=== PATIENT | female | born 1975 | race Caucasian/White ===

== ENCOUNTER 2023-12-12 15:05 | Outpatient (RCR) | payer MEDICARE, SELFPAY ==
--- NOTE | 2023-12-27 09:02 | OPREHPOC ---
Outpatient Therapy Plan of Care This is a Multidisciplinary Plan of Care that may contain components documented by all disciplines (PT, OT, and ST.) PT Problem 1 PT Problem #1 Knowledge Deficit PT Goal 1 Goal 1. independent and compliant with HEP Target Visit 3 PT Problem 2 PT Problem #2 Pain PT Goal 1 Goal 1. decrease pain at worst to 3/10 or less in the R shoulder. Target Visit 6 PT Problem 3 PT Problem #3 Impaired Range of Motion PT Goal 1 Goal 1. improve active R shoulder flexion to 140 degrees or better 2. improve active R shoulder IR to 60 degrees or better 3. improve active R shoulder ER to 60 degrees or better Target Visit 6 PT Problem 4 PT Problem #4 Impaired Strength PT Goal 1 Goal 1. 4+/5 or greater R shoulder strength Target Visit 6 PT Problem 5 PT Problem #5 Impaired Functional Mobil PT Goal 1 Goal 1. quick dash to display less than 15% functional deficits 2. patient to return to prior level cleaning and home care activities without pain or limitation in mobility. Target Visit 6
--- NOTE | 2023-12-27 09:02 | PTOPEVAL1 ---
Assessment and note entered by JT File, PT Evaluation Information Assessment Status Evaluation Diagnosis R shoulder pain, adhesive capsulitis Onset 11/25/23 Subjective Information patient has seen ortho for R shoulder. she has pain in the R shoulder. she has had an xray, MRI, and nerve conduction test. she reports symptoms began last year when she was cleaning her house. she began getting pain in the R shoulder that felt like she tore something. she may have injured it as well after some exercising. she reports she reached for something under the bed. she began having a burning pain. she reports saw her family MD. she reports she then had an xray. it was negative. she then was referred for MRI. she reports meds have not helped. she got a 2nd opinion from Dr Quispe. she reports he felt maybe there was a tear. she had an injection then. she reports she is sore but mostly tolerable now. she is trying to avoid surgery. she has increased pain in the R shoulder with reaching overhead, such as when cleaning. she reports it feels like a resistance. she reports she has to adjust the angle and take her time. she reports she has not been able to exercise in the gym since the injury. she is walking on the treadmill for exercise. she has no scheduled appointment to follow up with ortho. Reported Pain Level Pain Score 3: Self Report Assessment PT Clinical Summary mrs. hope is a 48 yo woman who presents to skilled PT services for evaluation and treatment of R shoulder pain. she presents today with decreased rom, decreased strength, and pain in the R shoulder. her signs and symptoms indicated an adhesive capsulitis of the R shoulder. continued skilled PT is indicated to improve her shoulder rom, strength, and functional use to return to prior level functional activities and quality of life. Plan of Care Interventions Electrical Stimulation,Gait Training,Hot Pack/Cold Pack,Manual Therapy,Neuro Re-education,Patient/ Caregiver Educati,Therapeutic Activities, Therapeutic Exercise PT Services Indicated Yes Treatment Frequency and 3x weekly for 6 visits Duration These treatments will address the objective and functional deficits as defined above. The patient will be advanced safely and appropriately in order for the patient to p
--- NOTE | 2023-12-27 13:50 | OPREHPOC ---
Outpatient Therapy Plan of Care This is a Multidisciplinary Plan of Care that may contain components documented by all disciplines (PT, OT, and ST.) PT Problem 1 PT Problem #1 Knowledge Deficit PT Goal 1 Goal 1. independent and compliant with HEP Target Visit 3 Progress Met PT Problem 2 PT Problem #2 Pain PT Goal 1 Goal 1. decrease pain at worst to 3/10 or less in the R shoulder. Target Visit 6 Progress Met PT Problem 3 PT Problem #3 Impaired Range of Motion PT Goal 1 Goal 1. improve active R shoulder flexion to 140 degrees or better. met 2. improve active R shoulder IR to 60 degrees or better 3. improve active R shoulder ER to 60 degrees or better. met Target Visit 6 Progress Met PT Problem 4 PT Problem #4 Impaired Strength PT Goal 1 Goal 1. 4+/5 or greater R shoulder strength Target Visit 6 Progress Met PT Problem 5 PT Problem #5 Impaired Functional Mobil PT Goal 1 Goal 1. quick dash to display less than 15% functional deficits 2. patient to return to prior level cleaning and home care activities without pain or limitation in mobility. met Target Visit 6 Progress Partially Met
--- NOTE | 2023-12-27 13:51 | PTOPDC ---
Assessment and note entered by JT File, PT Evaluation Information Assessment Status Discharge Diagnosis R shoulder pain, adhesive capsulitis Onset 11/25/23 Subjective Information patient reports she is feeling good today. she reports she has little pain in the R shoulder, is able to clean house, and feels her mobility is improved. she is leaving to go out of town, and will be gone for an extended period of time [place]. Reported Pain Level Pain Score 2: Self Report Assessment PT Clinical Summary mrs. hope presents to skilled PT services today for her 6th skilled PT visit. as of this date, she has shown and improvement in rom, strength, and functional reaching of the R shoulder. she also reports less pain and rest and with activity. she has met goals for hep performance, pain, rom, and strength with partial progress made in quick dash score and IR rom. she is leaving to go out of the country for family. she will be DC'd from skilled PT services today, but continue with an updated HEP independently. Plan of Care PT Services Indicated Yes
== END 2023-12-27 14:24 | disposition home or self-care (01) ==
LOC: CHSPT 15:05
PROVIDERS: Visit Provider Orthopaedic Surgery
DX: M75.00 Adhesive capsulitis of unspecified shoulder (principal); M25.511 Pain in right shoulder
CPT/HCPCS: 97014; 97110; 97140; 97161; G0283

== ENCOUNTER 2024-05-04 08:58 | Outpatient (CLI) | payer MEDICARE, SELFPAY ==
--- NOTE | ~2024-05-04 | MR_ITS ---
MRI of the right shoulder Technique: Axial proton-density fat-sat images, coronal proton density fat-sat and T2 fat-sat images, and sagittal T1-weighted and T2 fat-sat images were acquired. Clinical History: Rotator cuff tear Findings: There is minimal degenerative change of the AC joint. Coracoclavicular, coracoacromial, and coracohumeral ligaments are intact. Supraspinatus and infraspinatus tendons are intact, without partial or full-thickness tear. Subscapul ashutosh tendon is intact. Tendon of long head of the biceps is intact. No labral tear seen. Inferior glenohumeral ligament is intact. No significant degenerative change or effusion of the gleno humeral joint. No fluid distention of the subacromial/subdeltoid bursa. No muscle atrophy or edema. Impression: No significant abnormality seen. Minimal AC joint degenerative change. Reviewed, dictated and finalized at [facility]. Impression: No significant abnormality seen. Minimal AC joint degenerative change.
== END 2024-05-04 08:59 | disposition home or self-care (01) ==
PROVIDERS: PCP Orthopaedic Surgery; Visit Provider Orthopaedic Surgery
DX: M75.101 Unspecified rotator cuff tear or rupture of right shoulder, not specified as traumatic (principal); M25.511 Pain in right shoulder
CPT/HCPCS: 73221

== ENCOUNTER 2024-06-24 02:08 | Day surgery (SDC) | payer MEDICARE, SELFPAY ==
[2024-06-16 10:42] VITALS: BMI 20.5
--- NOTE | 2024-06-16 11:17 | PC.NURSE ---
Report to the Outpatient Waiting Room, entrance under the green pavilion located off [facility], at time __11:30AM on date ___06/24/24____. Planned Procedure Time: ___1:30PM .? Time changes happen often and if your time is changed the preop area will call you the afternoon before. - You and your visitor will be asked to self-screen and do not enter if you have any COVID symptoms. Please call surgeon if you need to reschedule. - A mask is optional within the hospital at this time. Patients may have clear liquids (water, carbonated beverages, clear teas, apple juice) until 3 hours prior to surgery with a maximum of 20 ounces. - No food from midnight until time of surgery and no smoking. Take only the following medications with a SIP of water on the morning of surgery: NONE DO NOT STOP ANY OF YOUR OTHER PRESCRIPTION MEDICATIONS PRIOR TO SURGERY EXCEPT THE FOLLOWING Medications to discontinue per physician HOLD ALL VITAMINS/SUPPLEMENTS 3 DAYS PRE-OP PER ANESTHESIA Date to take last dose 06/20/24 Please no make-up, nail divehi, hairspray, perfume, deodorant, or body powder the day of surgery.? No jewelry (including any body piercings) or valuables the day of surgery, leave them at home.? Please take a shower or bath the night before, or the morning of, surgery with an antibacterial soap.? Wear comfortable, loose fitting clothing.? - Jewelry must be removed prior to entering the operating room.? Rings and piercings that are not removed may be cut off. - The hospital will not accept responsibility for valuables.? - Please leave all valuables, including medications, at home the day of surgery. If you are going home after surgery, a licensed cement mixer driver must drive you home.? - NO public transportation without another adult if you receive anesthesia. - We recommend that an adult stay with you for 24 hours following discharge. - We also recommend that you do not drive, make important decision, drink alcoholic beverages, or take any drugs that were not prescribed by your health care provider for at least 24 hours after your discharge time. Follow any additional instructions given to you from your surgeon. Telephone instructions given to ___PATIENT & HUSBAND and asked if any additional questions and then verbalized understanding. Patient advised to call surgeon office or pre surgery nurse liaison [phone] if any additional questions.
[2024-06-24] VITALS (9 sets, daily range): BP systolic 87–108; BP diastolic 53–71; PULSE 52–85; RESP 12–18; TEMP 36.6–36.7; O2SAT 100
--- NOTE | 2024-06-24 07:04 | WPDHPUPDATE1 ---
History and Physical Update Update Date/Time: 06/24/24 07:04 History and Physical has been reviewed, including an updated exam of the patient. There are NO changes in the patient's condition. Risks, benefits, and alternatives have been discussed and questions answered. Patient agrees to proceed with procedure.
[2024-06-24] MEDS: ACETAMINOPHEN 500 MG TABLET 1000 MG PO (12:10)
[2024-06-24] MEDS: CELECOXIB 200 MG CAPSULE PO (12:10)
[2024-06-24] MEDS: LACTATED RINGERS 1,000 ML 30 ML IV CONT (12:10)
[2024-06-24 13:05] LABS: Beta HCG Quantitative < 2.39 mIU/ML
--- NOTE | 2024-06-24 13:53 | WPDANESEPPF ---
Anes - Initial Pre Proc Eval Procedure: Operation Date: 06/24/24 13:30 Proposed Procedures p Right Shoulder Manipulation Under Anesthesia with Steroid Injection - Warner Quispe MD Date/Time: 06/24/24 13:53 Surgeon: Warner Quispe MD Pre Op Diagnosis: Rt shoulder adhesive Capsulitis Patient Data Age: 49 Gender: F Height: 1.6 m Weight: 57 kg Last Vital Signs Temp 97.8 F 06/24/24 13:22 Pulse 85 06/24/24 13:22 Resp 16 06/24/24 13:22 BP 108/60 06/24/24 13:22 Pulse Ox 100 06/24/24 13:22 O2 Del Method Room Air 06/24/24 13:22 Allergies Allergy/AdvReac Type Severity Reaction Status Date / Time No Known Allergies Allergy Unknown Verified 06/24/24 12:24 Home Medications Medication Instructions Recorded Confirmed Type uiptdric-sub-dirz 18 mg-FA 400 1 tablet PO DAILY 11/08/23 06/24/24 History mcg-calcium 500 mg-vit K 50 mcg tablet (Women's Multivitamin) Laboratory Tests 06/24/24 12:27 Beta HCG, Quant < 2.39 mIU/ML Patient hx anesthesia problems: none Family hx anesthesia problems: none Results Review: All pre-operative results and documents have been reviewed as part of the pre-operative evaluation. [facility] Surgical History Surgical History History of Family History Family History Father Malignant neoplasm of prostate Diabetes mellitus Hypertension Mother Hypertension Social History Social History Social History: caffeine use Smoking status: Never smoker Alcohol intake: current Drinks per week: 2 Substance use type: does not use Living arrangements: with family Additional living arrangements comments: HUSB AND CHILD Occupation/Education: occupation Additional occupation/education comments: [employer] Gender identity (if verbalized by the patient): Female Spiritual care concerns: No Anes - Eval Final PreProcedure Day of Procedure 06/24/24 13:53 Patient weight: normal Heart: regular rate and rhythm Lungs: clear to auscultation Airway: Mallampati scale class II Neurological: alert and oriented Last oral intake: >/= 8 hours ASA classification: I Emergent: no Anesthetic plan: proceed Anesthesia type and monitoring: general LMA and standard monitoring Results Review: All pre-operative results and documents have been reviewed as part of the pre-operative evaluation. Pt is healthy, active, no cp or sob. Preop done w [employer]. Informed Consent: The patient's anesthetic plan and its attendant risks and benefits were discussed with the patient/family/POA. Questions were solicited and answers provided to the satisfaction of the patient/family/POA.
--- NOTE | 2024-06-24 14:11 | P.HP_ITS ---
H&P: HPI History of Present Illness Date/Time: 06/24/24 14:11 Chief Complaint: New pt presents w/ bilateral shoulder pain that has been present for >1 year. NKI. R>L. Pt experiencing limited/painful ROM. She reports pain and popping w/ overhead and reaching activities. She reports occasional numbness in the hands/fingers. Weakness present. She received a cortisone injection into the subacromial space 11/25/23 and completed ~6wks of outpatient PT. She did expe rience some improvement, however, she denies resolution. MRI completed 05/04/24. Pt here to discuss results/poc. Review of Systems Review of Systems: All systems reviewed & are unremarkable except as noted in HPI and below PMFSH Surgical History Surgical History History of Family History Family History Father Malignant neoplasm of prostate Diabetes mellitus Hypertension Mother Hypertension Social History Social History Social History: caffeine use Smoking status: Never smoker Alcohol intake: current Drinks per week: 2 Substance use type: does not use Living arrangements: with family Additional living arrangements comments: HUSB AND CHILD Occupation/Education: occupation Additional occupation/education comments: [employer] Gender identity (if verbalized by the patient): Female Spiritual care concerns: No Meds Home Medications and Allergies Home Medications Medication Instructions Recorded Confirmed Type ywaiaeqf-ohx-khkj 18 mg-FA 400 1 tablet PO DAILY 11/08/23 06/24/24 History mcg-calcium 500 mg-vit K 50 mcg tablet (Women's Multivitamin) Allergies Allergy/AdvReac Type Severity Reaction Status Date / Time No Known Allergies Allergy Unknown Verified 06/24/24 12:24 Vital Signs Vital Signs - 24 hr 06/24/24 13:22 Temperature 36.6 C Pulse Rate 85 Respiratory Rate 16 Blood Pressure 108/60 Pulse Oximetry 100 Oxygen Delivery Room Air Exam Extrem: Right upper extremity: shoulder/upper arm normal to inspection, tenderness, swelling, axillary nerve sensory function normal, abnormal ROM pain with active ROM in ADduction, in ABduction, in extension, in flexion, in internal rotation and external rotation-, pain with passive ROM with ADduction, with ABduction, with extension, with flexion, with internal rotation and external rotation- and with range as follows (FF 75 ABD 75 ER 30 IR ILIAC CREST) and crepitus; no abrasions and no ecchymosis, elbow/forearm normal to inspection and normal ROM; no tenderness and no swelling, wrist normal to inspection and normal ROM; no tenderness and no swelling and Extremity exam: right hand normal to inspection, normal capillary refill, neuromotor exam normal, neurosensory exam normal, tendon exam normal, vascular exam radial pulse present, ulnar pulse present and normal capillary refill and normal ROM of fingers Assessment and Plan Assessment and plan (1) Frozen shoulder: Qualifiers: Laterality: right Qualified Code(s): M75.01 - Adhesive capsulitis of right shoulder Code(s): M75.00 - Adhesive capsulitis of unspecified shoulder Status: Acute Plan New pt presents w/ bilateral shoulder pain that has been present for >1 year. NKI. R>L. Pt experiencing limited/painful ROM. She reports pain and popping w/ overhead and reaching activities. She reports occasional numbness in the hands/fingers. Weakness present. She received a cortisone injection into the subacromial space 11/25/23 and completed ~6wks of outpatient PT. She did experience some improvement, however, she denies resolution. MRI completed 05/04/24. Pt here to discuss results/poc. Recommend right shoulder manipulation under anesthesia with injection as well. DISCUSSED NONOPERATIVE AND OPERATIVE TREATMENT OPTIONS WITH THE PATIENT. THE PATIENT'S QUESTIONS WERE ANSWERED. THE PATIENT DESIRES OPERATIVE TREATMENT. DISCUSSED __MUA AND INJECTION RIGHT SHOULDER . RISKS OF SURGERY INCLUDING BUT NOT LIMITED TO NEUROVASCULAR DAMAGE, WOUND COMPLICATIONS, BLOOD CLOT, PULMONARY EMBOLUS, STROKE, CO, ANESTHETIC RISKS UP TO AND INCLUDING WERE REVIEWED. CONTINUED PAIN AND POSSIBLE DYSFUNCTION WERE EXPLAINED. NO GUARANTEES WERE OFFERED. THE PATIENT UNDERSTANDS AND WISHES TO PROCEED.
[2024-06-24] MEDS: methylPREDNISolone ACETATE 80 MG/ML VIAL IM (14:23)
--- NOTE | 2024-06-24 14:44 | W.PM.PROC2 ---
Procedure Note - Detailed Date of Procedure 06/24/24 Pre-op Diagnosis Rt shoulder adhesive Capsulitis Post-op Diagnosis Same Procedure Performed JOE, INJECTION RIGHT SHOULDER Surgeon Warner Quispe MD Anesthesia General Description of Procedure THE PATIENT WAS TAKEN TO THE OPERATING ROOM AND PLACED UNDER GENERAL ANESTHESIA. ONCE SHE WAS CHEMICALLY PARALYZED THE RIGHT SHOULDER WAS MANIPULATED UNTIL FULL RANGE MOTION WAS ACHIEVED. NEXT THE RIGHT SHOULDER WAS PREPPED AND DRAPED STERILELY. DEPO MEDROL 80 MG X 1 CC AND MARCAINE 0.5% 9 CC WERE INJECTED IN TO THE RIGHT SHOULDER GLENOHUMERAL JOINT. THE PATIENT WAS SENT TO THE RECOVERY ROOM ONCE GENERAL ANESTHESIA WAS REVERSED, IN STABLE CONDITION. Estimated Blood Loss 0 Complications No immediate complications Disposition PACU
== END 2024-06-24 16:20 | disposition home or self-care (01) ==
PROVIDERS: Visit Provider Orthopaedic Surgery
PROC: (CPT 23700; principal; 2024-06-24 13:30)
DX: M75.01 Adhesive capsulitis of right shoulder (principal)
CPT/HCPCS: 23700; 36415; 84702; A9270; J0330; J1010; J1100; J2003; J2250; J2405; J2704; J3010; J7120

== ENCOUNTER 2024-06-25 09:59 | Outpatient (RCR) | payer MEDICARE, SELFPAY ==
--- NOTE | 2024-06-30 15:02 | OPREHPOC ---
Outpatient Therapy Plan of Care This is a Multidisciplinary Plan of Care that may contain components documented by all disciplines (PT, OT, and ST.) PT Problem 1 PT Problem #1 Knowledge Deficit PT Goal 1 Goal / Goal Update 1. independent and compliant with HEP Target Visit 5 PT Problem 2 PT Problem #2 Pain PT Goal 1 Goal / Goal Update 1. 2/10 pain at worst or less with active rom of the R shoulder Target Visit 10 PT Problem 3 PT Problem #3 Impaired Range of Motion PT Goal 1 Goal / Goal Update 1. 150 degrees passive R shoulder flex 2. 145 degrees or better active R shoulder flex 3. 90 degrees or better passive R shoulder ER 4. 70 degrees or better passive R shoulder IR Target Visit 10 PT Problem 4 PT Problem #4 Impaired Strength PT Goal 1 Goal / Goal Update 1. 4+/5 or better R shoulder strength Target Visit 10 PT Problem 5 PT Problem #5 Impaired Functional Mobil PT Goal 1 Goal / Goal Update 1. quick dash to display 0% functional deficits 2. patient to perform functional R UE reach behind head to the shirt collar 3. patient to perform functional R UE reach behind back to the bra line without compensated movement 4. patient to get dressed with ease 5. return to full body workouts to improve quality of life and overall health Target Visit 10
--- NOTE | 2024-06-30 15:02 | PTOPEVAL1 ---
Assessment and note entered by JT File, PT Evaluation Information Assessment Status Evaluation Diagnosis s/p R JOE ICD-10 Condition Codes (PT) M25.511 Other ICD-10 Condition Codes ( M75.01 PT) Onset 06/24/24 Subjective Information VRI Reta patient is deaf and uses a VRI spot washer for communication with PT. patient initially came down with adhesive capsulitis of the R shoulder several months ago. she did one round of therapy prior to going out of town to visit her family. when she returned she went under anesthesia for a manipulation of the R shoulder. she had this done on 06/24/24. her surgeon reports she had several adhesions broken up in ER of the R shoulder. he would like aggressive R shoulder PT including rom, strengthening, and stretching. she reports she is a bit sore today. patient repots difficulty with dressing due to pain/soreness and decreased mobility of the R shoulders. Reported Pain Level Pain Score 2: Self Report Assessment PT Clinical Summary mrs. hope is a 49 yo woman who presents to skilled PT services for evaluation and treatment s /p R shoulder JOE. she presents today with mm guarding, soreness, weakness, and decreased passive and active rom. she would benefit from aggressive continued skilled PT per MD orders to return to prior level rom and functional use of the R UE. Plan of Care Interventions Electrical Stimulation,Hot Pack/Cold Pack,Manual Therapy,Neuro Re-education,Patient/Caregiver Educati,Therapeutic Activities,Therapeutic Exercise PT Services Indicated Yes Treatment Frequency and 5x weekly for 10 visits Duration These treatments will address the objective and functional deficits as defined above. The patient will be advanced safely and appropriately in order for the patient to progress towards his/her prior level of function. Additional exercises will be introduced and as well as a comprehensive home exercise program upon discharge, if needed, ?to ensure carryover of functional gains achieved in the clinic. This treatment plan has been reviewed and agreement upon by the patient.
--- NOTE | 2024-07-10 09:39 | OPREHPOC ---
Outpatient Therapy Plan of Care This is a Multidisciplinary Plan of Care that may contain components documented by all disciplines (PT, OT, and ST.) PT Problem 1 PT Problem #1 Knowledge Deficit PT Goal 1 Goal / Goal Update 1. independent and compliant with HEP Target Visit 5 Progress Met PT Problem 2 PT Problem #2 Pain PT Goal 1 Goal / Goal Update 1. 2/10 pain at worst or less with active rom of the R shoulder Target Visit 10 Progress Met PT Problem 3 PT Problem #3 Impaired Range of Motion PT Goal 1 Goal / Goal Update 1. 150 degrees passive R shoulder flex. met 2. 145 degrees or better active R shoulder flex 3. 90 degrees or better passive R shoulder ER 4. 70 degrees or better passive R shoulder IR Target Visit 12 Progress Partially Met PT Problem 4 PT Problem #4 Impaired Strength PT Goal 1 Goal / Goal Update 1. 4+/5 or better R shoulder strength Target Visit 10 Progress Met PT Goal 2 Goal / Goal Update 1. patient to display 5/5 R shoulder strength Target Visit 12 PT Problem 5 PT Problem #5 Impaired Functional Mobil PT Goal 1 Goal / Goal Update 1. quick dash to display 0% functional deficits 2. patient to perform functional R UE reach behind head to the shirt collar. met 3. patient to perform functional R UE reach behind back to the bra line without compensated movement . met 4. patient to get dressed with ease. met 5. return to full body workouts to improve quality of life and overall health Target Visit 12 Progress Partially Met
--- NOTE | 2024-07-10 09:39 | PTOPREEVAL ---
Assessment and note entered by JT File, PT Evaluation Information Assessment Status Re-evaluation Diagnosis s/p R JOE ICD-10 Condition Codes (PT) M25.511 Other ICD-10 Condition Codes ( M75.01 PT) Onset 06/24/24 Subjective Information Nubia [id number] patient reports the R shoulder feels Good today. she reports she has been able to get dressed, bath, and do her hair without issues. she does not still some tenderness over the front of the R shoulder, and pain with reaching back behind her to get on a seat belt. she reports to the surgeon in early August. Reported Pain Level Pain Score 0: Self Report Assessment PT Clinical Summary mrs. hope presents to skilled PT for her 8th skilled therapy visit since JOE of the R shoulder. she displays decreased pain, improve active and passive rom, and improved strength of the R shoulder. she has met or partially met several goals already, but continues to lack full rom, strength, and goal attainment. she would benefit from continued skilled PT to improve her remaining objective/functional deficits and achieve all goals for skilled PT. Plan of Care Interventions Electrical Stimulation,Hot Pack/Cold Pack,Manual Therapy,Neuro Re-education,Patient/Caregiver Educati,Therapeutic Activities,Therapeutic Exercise PT Services Indicated Yes Treatment Frequency and continue skilled PT 2x weekly for 4 more visits Duration These treatments will address the objective and functional deficits as defined above. The patient will be advanced safely and appropriately in order for the patient to progress towards his/her prior level of function. Additional exercises will be introduced and as well as a comprehensive home exercise program upon discharge, if needed, ?to ensure carryover of functional gains achieved in the clinic. This treatment plan has been reviewed and agreement upon by the patient.
--- NOTE | 2024-07-23 12:29 | OPREHPOC ---
Outpatient Therapy Plan of Care This is a Multidisciplinary Plan of Care that may contain components documented by all disciplines (PT, OT, and ST.) PT Problem 1 PT Problem #1 Knowledge Deficit PT Goal 1 Goal / Goal Update 1. independent and compliant with HEP Target Visit 5 Progress Met PT Problem 2 PT Problem #2 Pain PT Goal 1 Goal / Goal Update 1. 2/10 pain at worst or less with active rom of the R shoulder Target Visit 10 Progress Met PT Problem 3 PT Problem #3 Impaired Range of Motion PT Goal 1 Goal / Goal Update 1. 150 degrees passive R shoulder flex. met 2. 145 degrees or better active R shoulder flex. met 3. 90 degrees or better passive R shoulder ER 4. 70 degrees or better passive R shoulder IR Target Visit 12 Progress Partially Met PT Problem 4 PT Problem #4 Impaired Strength PT Goal 1 Goal / Goal Update 1. 4+/5 or better R shoulder strength Target Visit 10 Progress Met PT Goal 2 Goal / Goal Update 1. patient to display 5/5 R shoulder strength Target Visit 12 Progress Met PT Problem 5 PT Problem #5 Impaired Functional Mobility PT Goal 1 Goal / Goal Update 1. quick dash to display 0% functional deficits. not met 2. patient to perform functional R UE reach behind head to the shirt collar. met 3. patient to perform functional R UE reach behind back to the bra line without compensated movement . met 4. patient to get dressed with ease. met 5. return to full body workouts to improve quality of life and overall health Target Visit 12 Progress Partially Met
--- NOTE | 2024-07-23 12:29 | PTOPDC ---
Assessment and note entered by JT File, PT Evaluation Information Assessment Status Discharge Diagnosis s/p R JOE ICD-10 Condition Codes (PT) Pain in right shoulder M25.511 Other ICD-10 Condition Codes ( M75.01 PT) Onset 06/24/24 Subjective Information Renata [id number] patient reports she feels great today. she has no pain. she is leaving out of town next week, and then has a follow up with the surgeon after this. she reports she would like to return to her gym workouts and classes. Reported Pain Level Pain Score 0: Self Report Assessment PT Clinical Summary mrs. hope presents to skilled PT for her 12th skilled PT visit since her JOE. she displays nearly full rom of the R shoulder today, but full strength, and no pain. she has met all goals except for R shoulder ER reach and return to prior gym workouts. she will DC skilled PT today, and continue with HEP. she plans to return to prior level gym workouts and activities as well. Plan of Care PT Services Indicated Yes
== END 2024-07-23 17:06 | disposition home or self-care (01) ==
LOC: CHSPT 09:59
PROVIDERS: Visit Provider Orthopaedic Surgery
DX: M75.01 Adhesive capsulitis of right shoulder (principal)
CPT/HCPCS: 97014; 97110; 97140; 97161; G0283